=== PATIENT | female | born 1975 | race Caucasian/White ===

== ENCOUNTER 2017-12-14 05:37 | Day surgery (SDC) | payer OTHER ==
[2017-12-14] MEDS ORDERED: LIDOCAINE 0.5% (MDV) 50 ML INJ (06:52)
[2017-12-14] MEDS ORDERED: ROCURONIUM 50 MG INJ (08:09)
[2017-12-14] MEDS ORDERED: PROPOFOL 20 ML (08:09)
[2017-12-14] MEDS ORDERED: CEFAZOLIN 1 GM INJ (08:10)
[2017-12-14] MEDS ORDERED: ONDANSETRON 4 MG INJ (08:10)
[2017-12-14] MEDS ORDERED: DEXAMETHASONE 4 MG/ML 1 ML INJ (08:10)
[2017-12-14] MEDS ORDERED: SUGAMMADEX SODIUM 200 MG/2 ML VIAL IV (08:42)
[2017-12-14] MEDS: ROPIVACAINE 0.5 % 30 ML VIAL (08:53)
[2017-12-14] MEDS: morphine SULFATE/PF (10 MG/10 ML) INJ (08:53)
[2017-12-14] MEDS: NEOMYC/POLYMYX/BACIT 30 GM OINT (08:53)
[2017-12-14] MEDS ORDERED: ALBUTEROL 0.083% (NEB) 2.5 MG/3 ML AMP HHN (09:00)
[2017-12-14] MEDS ORDERED: hydrALAzine 20 MG INJ IV (09:00)
[2017-12-14] MEDS ORDERED: ONDANSETRON 4 MG INJ IV (09:00)
[2017-12-14] MEDS ORDERED: EPHEDrine SULFATE 50 MG/5 ML SYG IV (09:00)
[2017-12-14] MEDS ORDERED: KETOROLAC 30 MG INJ IV (09:00)
[2017-12-14] MEDS ORDERED: LABETALOL HCL 20MG INJ IV (09:00)
[2017-12-14] MEDS ORDERED: DIPHENHYDRAMINE 50 MG INJ IV (09:00)
[2017-12-14] MEDS ORDERED: OXYCODONE/ACETAMINOPHEN (5/325) TAB PO (09:00)
[2017-12-14] MEDS ORDERED: MEPERIDINE 25 MG INJ IV (09:00)
[2017-12-14] MEDS ORDERED: FENTAnyl 50 MCG/ML VIAL IV ×3 (09:00)
[2017-12-14] MEDS ORDERED: HYDROmorphONE 1 MG/5 ML IV SYRINGE IV ×3 (09:00)
[2017-12-14] MEDS ORDERED: METOCLOPRAMIDE 10 MG INJ IV (09:00)
[2017-12-14] MEDS ORDERED: MEPERIDINE 25 MG INJ (09:05)
[2017-12-14] MEDS ORDERED: morphine 2 MG INJ IV (09:30)
[2017-12-14] MEDS: OXYCODONE/ACETAMINOPHEN (5/325) TAB PO (10:24)
== END 2017-12-14 10:40 | disposition home or self-care (01) ==
LOC: SDS 05:37
DX: S83.231D Complex tear of medial meniscus, current injury, right knee, subsequent encounter (principal); S83.281D Other tear of lateral meniscus, current injury, right knee, subsequent encounter; X58.XXXD Exposure to other specified factors, subsequent encounter; M94.261 Chondromalacia, right knee
CPT/HCPCS: 29880